=== PATIENT | male | born 1955 | race Caucasian/White ===

== ENCOUNTER 2018-05-18 10:58 | Emergency (ER) | payer MEDICAID, OTHER ==
[2018-05-18 11:39] VITALS: BP 150/82
[2018-05-18 13:06] LABS: Urine Bacteria NONE SEEN /hpf (None Seen); Urine Blood TRACE /uL (Negative); Urine Specific Gravity 1.008 (1.001-1.035); Urine WBC <1 /hpf (0 - 3)
== END 2018-05-18 12:54 | disposition home or self-care (01) ==
LOC: EDBD 10:58 → ER 11:01
DX: R25.2 Cramp and spasm (principal); M79.604 Pain in right leg; R10.2 Pelvic and perineal pain; M25.561 Pain in right knee; I25.2 Old myocardial infarction; E78.00 Pure hypercholesterolemia, unspecified; Z95.0 Presence of cardiac pacemaker
CPT/HCPCS: 81001

== ENCOUNTER 2018-12-07 16:00 | Emergency (ER) | payer MEDICAID ==
[~2018-12-07] VITALS: Ht 157.5 cm; Wt 63.5 kg
[2018-12-07] MEDS ORDERED: SODIUM CHLORIDE 0.9% 1,000 ML IV ONE ×2 (16:30)
[2018-12-07] MEDS ORDERED: THIAMINE 100mg/ml INJ (200mg/2ml VIAL) IV ONE (16:30)
[2018-12-07 16:54] LABS: Albumin 3.2 g/dL (3.4-5.0); Calcium 7.9 mg/dL (8.5-10.1); Potassium 3.5 mmol/L (3.5-5.1)
[2018-12-07 16:57] LABS: BUN/Creatinine Ratio 9.7; Bilirubin, Total 0.6 mg/dL (0.2-1.0); Total Protein 6.4 g/dL (6.4-8.2)
[2018-12-07] MEDS ORDERED: TETANUS-DIPTH-ACEL PERTUSSIS 0.5ML SYRG IM ONE (17:15)
[2018-12-07] MEDS ORDERED: cefTRIAXone 1GM/50ML D5W 50 ML IV ONE (17:15)
[2018-12-07 17:16] LABS: Basophils # (auto) 0.1 uL; Basophils % (auto) 2.5 % (0.0-2.0); Eosinophils # (auto) 0.2 uL; Eosinophils % (auto) 8.9 % (0.0-7.0); Hematocrit 32.2 % (41.0-53.0); Hemoglobin 10.9 g/dL (13.5-17.5); Lymphocytes # (auto) 0.9 uL; Lymphocytes % (auto) 36.5 % (10.0-50.0); Mean Corpuscular Hgb Conc. 33.7 g/dL (32.0-36.0); Mean Corpuscular Volume 100.9 fL (80.0-100.0); Monocytes # (auto) 0.3 uL; Monocytes % (auto) 12.4 % (0.0-12.0); Neutrophils # (auto) 0.9 uL; Neutrophils % (auto) 39.7 % (37.0-80.0); Nucleated Red Blood Cells % 0.1 %; Platelet Count (auto) 198 10^3/uL (140-450); Red Cell Distribution Width 14.5 % (11.8-14.3); White Blood Cell 2.3 10^3/uL (4.4-10.8)
[2018-12-07 18:50] VITALS: BP 110/65
== END 2018-12-07 18:56 | disposition home or self-care (01) ==
LOC: EDBD 16:00 → ER 16:00
DX: S51.811A Laceration without foreign body of right forearm, initial encounter (principal); S01.81XA Laceration without foreign body of other part of head, initial encounter; I12.9 Hypertensive chronic kidney disease with stage 1 through stage 4 chronic kidney disease, or unspecified chronic kidney disease; N18.9 Chronic kidney disease, unspecified; I25.2 Old myocardial infarction; E78.5 Hyperlipidemia, unspecified; Z95.1 Presence of aortocoronary bypass graft; W01.0XXA Fall on same level from slipping, tripping and stumbling without subsequent striking against object, initial encounter; Y93.89 Activity, other specified; Y99.8 Other external cause status; Y92.89 Other specified places as the place of occurrence of the external cause
CPT/HCPCS: 12035; 36415; 70450; 71045; 72125; 73090; 80053; 80320; 83735; 83880; 85025; 90471; 90715; 93005; 94761; 96361; 96365; 96375; 99284; J0696; J3411; J7030; 12045